=== PATIENT | male | born 1960 | race Caucasian/White ===

== ENCOUNTER 2016-04-10 10:12 | Day surgery (SDC) | payer BC, OTHER ==
[2016-04-05 14:34] VITALS: BMI 31.4
[~2016-04-10 10:12] MED LIST: DEXAMETHASONE SOD PHOSPHATE 10 MG/ML 1 ML VIAL IV ONE; HEPARIN SODIUM,PORCINE 5,000 UNIT/ML 1 ML VIAL SQ ONE; HYDROmorphone 1 MG/ML 1 ML SYRINGE IVP PRN; LACTATED RINGERS 1,000 ML IV SCH; MIDAZOLAM 2 MG/2 ML VIAL IV PRN; ONDANSETRON 4 MG/2 ML VIAL IVP ONE; Pre Op ABX Message 1 EACH MISC MISCELLANE ONE; SCOPOLAMINE 1.5MG/72HR PATCH TRANSDERM ONE
[2016-04-10 10:36] VITALS: RESP 16; TEMP 98.1
[2016-04-10] MEDS ORDERED: LIDOCAINE 1% 20 ML VIAL (10MG/ML) FOR IV START INTRADERMA ONE (10:41)
[2016-04-10] MEDS ORDERED: HEPARIN SODIUM,PORCINE 5,000 UNIT/ML 1 ML VIAL SQ ONE (11:57)
[2016-04-10] MEDS ORDERED: fentaNYL (PF) 50 MCG/ML 2 ML AMP ONE (13:06)
[2016-04-10] MEDS ORDERED: PROPOFOL 10 MG/ML 20 ML VIAL IV ONE (13:06)
[2016-04-10] MEDS ORDERED: KETAMINE 10 MG/ML 20 ML VIAL ONE (13:06)
[2016-04-10] MEDS ORDERED: MIDAZOLAM 2 MG/2 ML VIAL ONE (13:06)
[2016-04-10] MEDS ORDERED: LACTATED RINGERS 1,000 ML IV ONE (13:12)
[2016-04-10] MEDS ORDERED: LIDOCAINE 1% INJ 10MG/ML (20 ML MDV) SQ ONE ×3 (13:17→13:29)
--- NOTE | 2016-04-10 13:51 | P.OP ---
Date of Procedure: 04/10/16 Preoperative Diagnosis: Right groin cyst and mass Postoperative Diagnosis: Same Procedure(s) Performed: Excision of mass right groin and excision of cyst right groin Anesthesia: MAC Surgeon: Patria Encinas Estimated Blood Loss (ml): 5 IV fluids (ml): 400 Pathology: other (Right groin cyst and mass) Condition: stable Disposition: PACU Indications for Procedure: Patient has had recurrent infections in his right groin in the cystic area, additionally patient has a small soft tissue mass Operative Findings: Cystic area right groin, mass right groin/thigh area Description of Procedure: The patient is a 55-year-old gentleman who has had of recurrent infections in a cystlike area in his right groin. At the present time is not infected. Additionally the patient has a soft tissue mass in his upper thigh. These areas are going to be removed. The patient understands the risks and benefits and wishes to proceed. Patient was significantly operating room and following sedation the right groin was prepped and draped in a sterile fashion. One percent lidocaine was used to anesthetize the area of concern. There were 2 separate areas of concern. The first was soft tissue mass which is approximately 3 cm in size. The skin was anesthetized it was opened and it and dissection was performed through the subcutaneous tissue. A lipomatous like mass was identified and removed. This was approximately 3 cm x 2 cm in size. After assured that hemostasis was attained the deep sutures were placed followed by 4-0 Monocryl on the skin. Following this the medial and superior to it was an area in the area of the groin/upper thigh which appeared to have been this a cyst in patient had reported multiple episodes of infection of this area. The area was anesthetized using 1% lidocaine. Wide excisional biopsy was performed. This went through the skin and subcutaneous tissues. After assured that hemostasis was attained. Nylon was used to close the skin. This is approximately 1 cm x 2 cm. The patient tolerated the procedure in stable condition. All instrument and sponge counts were correct at the end of the case.
--- NOTE | 2016-04-10 13:53 | P.DS ---
Providers Attending physician: Patria Encinas Primary care physician: Frank Arellano Plan - Discharge Summary New Discharge Prescriptions: HYDROcodone/APAP 5-325MG [[place] 5] 1 - 2 each PO Q4H PRN #20 tab PRN Reason: Pain Discharge Medication List Aspirin 325 mg PO DAILY 08/09/14 [History] Atorvastatin [Lipitor] 40 mg PO HS 08/09/14 [History] Omeprazole [PriLOSEC] 20 mg PO DAILY PRN 04/05/16 [History] HYDROcodone/APAP 5-325MG [[place] 5] 1 - 2 each PO Q4H PRN #20 tab 04/10/16 [Rx] Follow up Appointment(s)/Referral(s): Patria Encinas MD [STAFF PHYSICIAN] - 1 Week Activity/Diet/Wound Care/Special Instructions: Do not drive today Do not drive if taking pain medication Patient may shower after 24 hours Discharge Disposition: HOME SELF-CARE
[2016-04-10 15:25] VITALS: BP 134/79; PULSE 73
== END 2016-04-10 15:28 | disposition home or self-care (01) ==
LOC: OR 10:12
PROVIDERS: ATTEND Surgery
DX: R22.41 Localized swelling, mass and lump, right lower limb (principal); L72.9 Follicular cyst of the skin and subcutaneous tissue, unspecified; K21.9 Gastro-esophageal reflux disease without esophagitis; Z79.1 Long term (current) use of non-steroidal anti-inflammatories (NSAID); Z79.899 Other long term (current) drug therapy; F17.210 Nicotine dependence, cigarettes, uncomplicated
CPT/HCPCS: 88304; 88305; 27337; 11402; J1644; J1100; J2405; J2001; 99152; 99153

== ENCOUNTER → 2017-08-05 | Outpatient (CLI) | payer OTHER ==
--- NOTE | 2017-08-05 23:16 | MR ---
EXAMINATION TYPE: MR tspine/lspine wo con DATE OF EXAM: 08/05/2017 COMPARISON: Outside thoracic spine x-ray July 09, 2017 HISTORY: Pain with radiation per order. Chronic back pain into bilateral thighs per patient. TECHNIQUE: Multiplanar, multisequence imaging of the thoracic and lumbar spine are performed without IV contrast. FINDINGS: T-SPINE: Sagittal T2 counting sequence shows ossific fusion of C6 and C7 vertebra presumed postsurgical. There is small T2 hyperintense focus in spinal cord at this level. The intervertebral discs demonstrate di ffuse desiccation of disc space heights are fairly well maintained. Posterior disc herniations are pr esent at T8-T9, T9-T10, T11-T12, and T12-L1 levels on sagittal images effacing the anterior thecal sa c. There is small hemangioma anterior-inferior T9 vertebra. There is moderate multilevel lateral spu rring in the mid to lower thoracic spine. Axial images confirm central disc protrusion effacing the anterior thecal sac at T8-T9 level on image 13 series 601 and T9-T10 level on image 10. Axial images confirm central disc protrusion effacing the anterior thecal sac at T11-T12 level on axi al image 5 and left paracentral disc protrusion effacing into lateral thecal sac at T12-L1 level on a xial image 3. No additional disc herniations are seen. 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 L-SPINE: TECHNIQUE: Multiplanar, multisequence imaging of the lumbar spine is performed without IV contrast. FINDINGS: Sagittal images of the lumbar spine show vertebral body heights and alignment to appear sat isfactory. The intervertebral discs demonstrate multilevel disc desiccation with mild to moderate dis c space narrowing L4-L5 level. Disc herniation is present at this level on sagittal images. The conu s medullaris is normal in position and signal ending mid L1 level. The bone marrow signal intensity is within normal limits. Axial images show the L1-L2, L2-L3, and L3-L4 levels to appear within normal limits. Axial images at L4-L5 level shows broad disc bulge with right paracentral disc protrusion effacing an terior thecal sac and hvel-al-fstbrhdt facet degenerative changes bilaterally. There is mild to moder ate right greater than left lateral interior inferior neural foraminal narrowing. Axial images at L5-S1 level moderate facet degenerative changes bilaterally. There is small central d isc protrusion seen the spinal canal is preserved. Right-sided neural foramina is patent. Left side s hows mild to moderate anterior-inferior narrowing due to small spur sagittal image 3 and axial images 3 and 4 There is partial visualization of 1.9 cm round T2 hyperintense lesion favoring simple cyst medially u pper to mid pole of the right kidney image 30. IMPRESSION: Some multilevel degenerative change lower lumbar spine most prominent L4-L5 level as deta iled above.
== END | disposition home or self-care (01) ==
LOC: RADMRIMAIN 11:41
PROVIDERS: ATTEND Internal Medicine
DX: M51.24 Other intervertebral disc displacement, thoracic region (principal); M47.816 Spondylosis without myelopathy or radiculopathy, lumbar region
CPT/HCPCS: 72146; 72148

== ENCOUNTER → 2019-02-20 | Outpatient (CLI) | payer OTHER ==
--- NOTE | 2019-02-20 08:36 | US ---
EXAMINATION TYPE: US carotid duplex BILAT DATE OF EXAM: 02/20/2019 COMPARISON: NONE CLINICAL HISTORY: R07.9 chest pain, I10 hypertension. Hyperlipidemia EXAM MEASUREMENTS: RIGHT: Peak Systolic Velocity (PSV) cm/sec ----- Right CCA: 78.2 ----- Right ICA: 176.7 ----- Right ECA: 188.3 ICA/CCA ratio: 2.3 RIGHT: End Diastole cm/sec ----- Right CCA: 28.0 ----- Right ICA: 52.4 ----- Right ECA: 34.1 LEFT: Peak Systolic Velocity (PSV) cm/sec ----- Left CCA: 57.3 ----- Left ICA: 98.7 ----- Left ECA: 321.4 ICA/CCA ratio: 1.7 LEFT: End Diastole cm/sec ----- Left CCA: 24.1 ----- Left ICA: 34.8 ----- Left ECA: 67.1 VERTEBRALS (direction of flow): Right Vertebral: Antegrade Left Vertebral: Antegrade There is moderate to severe eccentric plaque at carotid bulb level bilaterally. Increased velocities right internal carotid artery with abnormal ratio noted. IMPRESSION: Moderate to severe plaque bilaterally greater on the right with hemodynamically signific ant stenosis estimated 50-69% , CTA or MRA of neck can be performed to better evaluate and characte sugarze. Criteria for Assigning % of Stenosis / Diameter reduction (Estimation based on the indirect measurements of the internal carotid artery velocities (ICA PSV). 1. Normal (no stenosis)=ICA PSV < 125 cm/s: ratio < 2.0: ICA EDV<40 cm/s. 2. Less than 50% stenosis=ICA PSV < 125 cm/s: ratio < 2.0: ICA EDV<40 cm/s. 3. 50 to 69% stenosis=ICA PSV of 125 to 230 cm/s: ration 2.0 ? 4.0: ICA EDV 40-100 cm/s. 4. Greater than 70% stenosis to near occlusion= ICA PSV > 230 cm/s: ratio > 4.0: ICA EDV > 100 cm/s. 5. Near occlusion= ICA PSV velocities may be low or undetectable: variable ratio and ICA EDV. 6. Total occlusion=unable to detect flow.
--- NOTE | 2019-02-20 11:35 | NM ---
EXAMINATION TYPE: NM stress cardiolite complete DATE OF EXAM: 02/20/2019 COMPARISON: NONE HISTORY: History of hypertension and tobacco use along with hypercholesterolemia presents with chest pain TECHNIQUE: After the intravenous administration of 9.7 mCi Tc 99m Sestamibi - Rest images obtained 4 5 minutes post injection. The patient exercised using a KATHY protocol and 1 minute prior to peak e xercise was injected with 25.2 mCi Tc 99m Sestamibi - Stress images obtained 30 minutes post injectio n. FINDINGS: Targeted heart rate was not achieved during performance of the study. Review of stress and rest SPECT images demonstrates no distinct perfusion abnormality. Gated analysis shows normal wall motion with an estimated left ventricular ejection fraction of 69 %. IMPRESSION: Suboptimal study without reversible ischemia identified. Consider repeat study with drug stress or Lexiscan.
--- NOTE | 2019-02-20 20:53 | EST ---
EXERCISE STRESS AGE: 58 SEX: Male. HT: 5'6" WT: 195 PROTOCOL: Cardiolite Haim STAGE: IV DURATION OF EXERCISE: 10:19 HEART RATE REST: 66 BLOOD PRESSURE REST: 114/78 MAXIMUM HEART RATE ACHIEVED: 133 MAXIMUM BLOOD PRESSURE: 150/71 85% MPHR: 137 100% MPHR: 161 METS: 11.9 INDICATIONS: CLINICAL INFORMATION: Baseline rhythm is sinus mechanism, rate 66, normal axis and intervals, normal electrocardiogram. Baseline blood pressure 114/78 mmHg. Patient exercised on Haim protocol for 10 minute and 19 seconds, reaching a peak rate of 133 beats per minute, which is equal to 82% maximum predicted heart rate. Peak blood pressure 150/71 mmHg. Test was stopped because of fatigue. There was no chest pain. Electrocardiograph monitoring revealed rare PVCs. There was no evidence of diagnostic ischemic ST deviation. CONCLUSION: 1. Good exercise tolerance with occasional premature ventricular contractions. 2. Normal electrocardiograph stress testing with no evidence of stress-induced ischemia. MMODL / IJN: [id number] /
== END | disposition home or self-care (01) ==
LOC: RADUSWWP 07:18
PROVIDERS: ATTEND Internal Medicine
DX: I65.23 Occlusion and stenosis of bilateral carotid arteries (principal); I10 Essential (primary) hypertension; E78.5 Hyperlipidemia, unspecified; R07.9 Chest pain, unspecified
CPT/HCPCS: 93017; 93880; 78452; A9500

== ENCOUNTER 2021-08-01 08:51 | Emergency (ER) | payer OTHER ==
[2021-08-01 08:57] VITALS: TEMP 97.4
[2021-08-01] MEDS ORDERED: SODIUM CHLORIDE 0.9% 500 ML 500 ML IV STA (09:18)
[2021-08-01] MEDS ORDERED: ONDANSETRON 4 MG/2 ML VIAL IVP STA (09:19)
--- NOTE | 2021-08-01 09:35 | ED ---
General Adult HPI - General Chief complaint: Chest Pain Stated complaint: Nausea/chest pain/off blanced Time Seen by Provider: 08/01/21 08:57 Source: patient, RN notes reviewed, old records reviewed Mode of arrival: wheelchair Limitations: no limitations - History of Present Illness Initial comments: 61-year-old male presenting for evaluation of , vomiting, dizziness. Patient's symptoms began this morning. He had what he describes as a twinge of chest pain centrally located as well as back pain. He had nausea and vomiting prior to arrival. No fever. He does report some diaphoresis as well as neck pain. No measured fever. No history of CAD. Chest pain is quite minimal at the time my evaluation. No abdominal pain. No focal numbness or weakness - Related Data Home Medications Medication Instructions Recorded Confirmed Atorvastatin [Lipitor] 40 mg PO DAILY 08/09/14 08/01/21 Omeprazole [PriLOSEC] 20 mg PO DAILY 04/05/16 08/01/21 amLODIPine [Norvasc] 10 mg PO DAILY 08/01/21 08/01/21 Allergies Allergy/AdvReac Type Severity Reaction Status Date / Time No Known Allergies Allergy Verified 08/01/21 11:22 Review of Systems ROS Statement: Those systems with pertinent positive or pertinent negative responses have been documented in the HPI. ROS Other: All systems not noted in ROS Statement are negative. Past Medical History Past Medical History: GERD/Reflux, Hyperlipidemia Additional Past Medical History / Comment(s): STATES "ABDOMINAL PAIN-IMPROVED WITH FAMOTIDINE" History of Any Multi-Drug Resistant Organisms: None Reported Past Surgical History: Cholecystectomy, Orthopedic Surgery, Tonsillectomy Additional Past Surgical History / Comment(s): NECK C5-C6 FUSION R/T COMPRESSION FX Past Anesthesia/Blood Transfusion Reactions: No Reported Reaction Past Psychological History: No Psychological Hx Reported Smoking Status: Current every day smoker Past Alcohol Use History: None Reported Past Drug Use History: None Reported - Past Family History Sister(s) Family Medical History: Cancer Additional Family Medical History / Comment(s): LIVER General Exam Limitations: no limitations General appearance: alert, in no apparent distress Head exam: Present: atraumatic, normocephalic Eye exam: Present: normal appearance, PERRL ENT exam: Present: normal exam Neck exam: Present: normal inspection. Absent: tenderness, meningismus Respiratory exam: Present: normal lung sounds bilaterally. Absent: respiratory distress, wheezes Cardiovascular Exam: Present: regular rate, normal rhythm GI/Abdominal exam: Present: soft. Absent: distended, tenderness, guarding, rebound Extremities exam: Present: normal inspection, normal capillary refill. Absent: pedal edema Neurological exam: Present: alert, oriented X3, CN II-XII intact, other (No ataxia). Absent: motor sensory deficit Psychiatric exam: Present: normal affect, normal mood Skin exam: Present: warm, dry, intact. Absent: cyanosis, diaphoretic Course Vital Signs 08/01/21 08/01/21 08/01/21 08:52 10:30 12:00 Temperature 97.4 F L Pulse Rate 72 50 L 51 L Respiratory 16 12 16 Rate Blood Pressure 134/67 109/77 113/84 O2 Sat by Pulse 96 100 96 Oximetry - Reevaluation(s) Reevaluation #1: 08/01/21 1215 Patient feeling better, offered observation for serial cardiac enzymes, patient wishes to be discharged, repeat enzymes ordered. Reevaluation #2: 08/01/21 13:44 Serial cardiac enzymes are negative at the 3 hour enoch. Patient feeling totally normal, believes his symptoms may be related to dehydration. He will return with any worsening or changing symptoms. EKG Findings - EKG Comments: EKG Findings:: EKG: Sinus rhythm rate of 61, VT interval 158, QRS duration 83, QTC [address] segment elevation. Medical Decision Making - Medical Decision Making 61-year-old male with a variety of symptoms including vomiting, neck pain, vague chest discomfort which is resolved, EKG is sinus without ST segment elevation. His workup includes a CT brain, chest x-ray, laboratory testing. He has a negative CT brain, negative chest x-ray, mildly elevated white blood cell count likely secondary to vomiting. Normal laboratory testing otherwise including negative d-dimer, negative cervical cardiac enzymes. Patient feeling better and wishing to be discharged. Return parameters given. - Lab Data Result diagrams: 08/01/21 09:45 08/01/21 09:45 Lab Results 08/01/21 08/01/21 08/01/21 Range/Units 09:45 09:45 09:45 WBC 13.4 H (3.8-10.6) k/uL RBC 4.99 (4.30-5.90) m/uL Hgb 13.2 (13.0-17.5) gm/dL Hct 42.9 (39.0-53.0) % MCV 86.0 (80.0-100.0) fL MCH 26.5 (25.0-35.0) pg MCHC 30.8 L (31.0-37.0) g/dL RDW 14.6 (11.5-15.5) % Plt Count 278 (150-450) k/uL MPV 8.9 Neutrophils % 78 % Lymphocytes % 14 % Monocytes % 5 % Eosinophils % 1 % Basophils % 1 % Neutrophils # 10.5 H (1.3-7.7) k/uL Lymphocytes # 1.9 (1.0-4.8) k/uL Monocytes # 0.7 (0-1.0) k/uL Eosinophils # 0.2 (0-0.7) k/uL Basophils # 0.1 (0-0.2) k/uL PT 10.6 (9.0-12.0) sec INR 1.0 (<1.2) APTT 26.6 (22.0-30.0) sec D-Dimer 0.46 (<0.60) mg/L FEU Sodium 137 (137-145) mmol/L Potassium 4.4 (3.5-5.1) mmol/L Chloride 103 (98-107) mmol/L Carbon Dioxide 28 (22-30) mmol/L Anion Gap 6 mmol/L BUN 20 (9-20) mg/dL Creatinine 0.70 (0.66-1.25) mg/dL Est GFR (CKD-EPI)AfAm >90 (>60 ml/min/1.73 sqM) Est GFR (CKD-EPI)NonAf >90 (>60 ml/min/1.73 sqM) Glucose 142 H (74-99) mg/dL Calcium 8.8 (8.4-10.2) mg/dL Magnesium 2.0 (1.6-2.3) mg/dL Total Bilirubin 0.6 (0.2-1.3) mg/dL AST 26 (17-59) U/L ALT 21 (4-49) U/L Alkaline Phosphatase 146 H (38-126) U/L Troponin I (0.000-0.034) ng/mL Total Protein 7.2 (6.3-8.2) g/dL Albumin 4.1 (3.5-5.0) g/dL Lipase 104 (23-300) U/L 08/01/21 08/01/21 Range/Units 09:45 12:44 WBC (3.8-10.6) k/uL RBC (4.30-5.90) m/uL Hgb (13.0-17.5) gm/dL Hct (39.0-53.0) % MCV (80.0-100.0) fL MCH (25.0-35.0) pg MCHC (31.0-37.0) g/dL RDW (11.5-15.5) % Plt Count (150-450) k/uL MPV Neutrophils % % Lymphocytes % % Monocytes % % Eosinophils % % Basophils % % Neutrophils # (1.3-7.7) k/uL Lymphocytes # (1.0-4.8) k/uL Monocytes # (0-1.0) k/uL Eosinophils # (0-0.7) k/uL Basophils # (0-0.2) k/uL PT (9.0-12.0) sec INR (<1.2) APTT (22.0-30.0) sec D-Dimer (<0.60) mg/L FEU Sodium (137-145) mmol/L Potassium (3.5-5.1) mmol/L Chloride (98-107) mmol/L Carbon Dioxide (22-30) mmol/L Anion Gap mmol/L BUN (9-20) mg/dL Creatinine (0.66-1.25) mg/dL Est GFR (CKD-EPI)AfAm (>60 ml/min/1.73 sqM) Est GFR (CKD-EPI)NonAf (>60 ml/min/1.73 sqM) Glucose (74-99) mg/dL Calcium (8.4-10.2) mg/dL Magnesium (1.6-2.3) mg/dL Total Bilirubin (0.2-1.3) mg/dL AST (17-59) U/L ALT (4-49) U/L Alkaline Phosphatase (38-126) U/L Troponin I <0.012 <0.012 (0.000-0.034) ng/mL Total Protein (6.3-8.2) g/dL Albumin (3.5-5.0) g/dL Lipase (23-300) U/L Disposition Clinical Impression: Dehydration Disposition: HOME SELF-CARE Condition: Fair Instructions (If sedation given, give patient instructions): Dehydration (ED) Is patient prescribed a controlled substance at d/c from ED?: No Referrals: Mannie Peña MD [Primary Care Provider] - 1-2 days Time of Disposition: 13:46
[2021-08-01 09:57] LABS: Basophils # (A) 0.1 k/uL (0-0.2); Basophils % (A) 1 %; Eosinophils # (A) 0.2 k/uL (0-0.7); Eosinophils % (A) 1 %; HCT 42.9 % (39.0-53.0); HGB 13.2 gm/dL (13.0-17.5); Lymphocytes # (A) 1.9 k/uL (1.0-4.8); Lymphocytes % (A) 14 %; MCH 26.5 pg (25.0-35.0); MCHC 30.8 g/dL (31.0-37.0); Mean Platelet Volume 8.9; Monocytes # (A) 0.7 k/uL (0-1.0); Monocytes % (A) 5 %; Neutrophils # (A) 10.5 k/uL (1.3-7.7); Neutrophils % (A) 78 %; Platelet Count 278 k/uL (150-450); RBC 4.99 m/uL (4.30-5.90); RDW 14.6 % (11.5-15.5); WBC 13.4 k/uL (3.8-10.6)
[2021-08-01 10:06] LABS: ALT 21 U/L (4-49); African American GFR (CKD) >90 (>60 ml/min/1.73 sqM); Albumin 4.1 g/dL (3.5-5.0); Alkaline Phosphatase 146 U/L (38-126); Anion Gap 6 mmol/L; Calcium 8.8 mg/dL (8.4-10.2); Carbon Dioxide 28 mmol/L (22-30); Chloride 103 mmol/L (98-107); Lipase 104 U/L (23-300); Non-African American GFR(CKD) >90 (>60 ml/min/1.73 sqM); Potassium 4.4 mmol/L (3.5-5.1); Sodium 137 mmol/L (137-145); Total Protein 7.2 g/dL (6.3-8.2)
[2021-08-01 10:07] LABS: AST 26 U/L (17-59); Blood Urea Nitrogen 20 mg/dL (9-20); Glucose 142 mg/dL (74-99); Total Bilirubin 0.6 mg/dL (0.2-1.3)
[2021-08-01 10:11] LABS: Partial Thromboplastin Time 26.6 sec (22.0-30.0); Prothrombin Time 10.6 sec (9.0-12.0)
--- NOTE | 2021-08-01 10:12 | XR ---
EXAMINATION TYPE: XR chest 2V DATE OF EXAM: 08/01/2021 COMPARISON: NONE TECHNIQUE: PA and lateral views submitted. HISTORY: Chest pain FINDINGS: The lungs are clear and there is no pneumothorax, pleural effusion, or focal pneumonia. Hypertrophi c and degenerative change of the spine. Heart size normal. No overt failure. Surgical clips in the ga llbladder fossa. IMPRESSION: 1. No acute process.
--- NOTE | 2021-08-01 10:30 | CT ---
EXAMINATION TYPE: CT brain ashwin white con DATE OF EXAM: 08/01/2021 COMPARISON: None available HISTORY: headache, dizziness, nausea, vomiting CT DLP: 1369.8 mGycm Automated exposure control for dose reduction was used. TECHNIQUE: CT scan of the head and cervical spine are performed without contrast. FINDINGS: Brain: Questionable bilateral cerebral white matter hypodensities which could represent mild chronic microva scular ischemic changes. No acute intracranial hemorrhage or gross acute cortical infarct. No midline shift or herniation. Unremarkable basal cisterns, sella and CP angles. No gross space-occupying lesi on, vasogenic edema or mass effect. No gross orbital abnormality. Right maxillary sinus polyp/retention cyst. Opacified right mastoid air cells and to a lesser extent the left inferior mastoid air cells suggestive of mastoiditis, please c orrelate clinically. No aggressive bone lesion. Cervical spine: Fusion of C6 and C7 vertebrae. No definitive vertebral body collapse or acute displaced fracture. Unr emarkable atlantoaxial and atlantooccipital articulations. Degenerative changes of the cervical spine with multilevel opposing endplate osteophytosis, degenerated discs and uncovertebral osteoarthropath y, most evident at C5-6 level. Multilevel facet arthropathy is also noted most evident involving the left C4-5 and left C5-6 facets. Left C4-5 and bilateral C5-6 neural foraminal stenosis. Spinal canal stenosis is seen at C5-6 level. Enlarged lingual tonsils, please correlate clinically. Further elective ENT consultation can be cons idered. Scattered arterial atherosclerotic calcifications. No paraspinal lesion. IMPRESSION: 1. No acute intracranial abnormality or gross space-occupying lesion by this unenhanced CT scan. Opac ified mastoid air cells, mastoiditis cannot be excluded, please correlate clinically. 2. No acute traumatic bony injury of the cervical spine. Degenerative changes of cervical spine as de scribed above. 3. Enlarged lingual tonsils, please correlate clinically. Further elective ENT consultation can be co nsidered as underlying lesion cannot be excluded. Other incidental findings as described above.
[2021-08-01] MEDS ORDERED: SODIUM CHLORIDE 0.9% 500 ML 500 ML IV ONE (11:08)
[2021-08-01 13:59] VITALS: BP 133/85; PULSE 65; RESP 18
== END 2021-08-01 13:59 | disposition home or self-care (01) ==
LOC: EC 08:51
DX: E86.0 Dehydration (principal); R07.9 Chest pain, unspecified; R11.2 Nausea with vomiting, unspecified; M54.2 Cervicalgia; R61 Generalized hyperhidrosis; F17.200 Nicotine dependence, unspecified, uncomplicated; K21.9 Gastro-esophageal reflux disease without esophagitis; E78.5 Hyperlipidemia, unspecified; Z79.899 Other long term (current) drug therapy
CPT/HCPCS: 36415; 93005; 85379; 80053; 83690; 83735; 84484; 85025; 85610; 85730; 71046; 72125; 70450; 96374; 96361; 99285; J2405